=== PATIENT | female | born 1950 | race African-American/Black ===

== ENCOUNTER 2017-06-23 14:38 | Observation (INO) | payer MEDICARE ==
[2017-06-23] MEDS ORDERED: Meclizine HCl 25 MG TAB ONE (15:43)
[2017-06-23 16:23] LABS: Eosinophils 1 % (0-10); Hemoglobin 14.1 g/dL (12.0-16.0); Lymphocytes 40 % (21-51); MDiff Complete? YES; Mean Corpuscular HGB CONC 33.9 g/dL (32.0-36.0); Mean Corpuscular Volume 88.5 fl (81.0-99.0); Mean Platelet Volume 7.2 fL (7.4-10.4); Monocytes 5 % (0-10); Neutrophil 46 % (42-75); PLT Morphology Comment Appears Adequate; Platelet Count 294 thou/uL (130-400); RBC Distribution Width 12.5 % (11.5-14.5); Reactive Lymphocytes 6 % (0-10); White Blood Cell (WBC) Count 6.6 thou/uL (4.8-10.8)
[2017-06-23 16:32] LABS: ALT (SGPT) 19 U/L (8-55); AST (SGOT) 26 U/L (5-34); Albumin 4.4 g/dL (3.4-4.8); Alkaline Phosphatase 151 U/L (40-150); Anion Gap 20 mmol/L (10-20); BUN (Urea Nitrogen) 16 mg/dL (9.8-20.1); Bilirubin, Total 0.4 mg/dL (0.2-1.2); Calc. Creatinine Clearance 0 mL/min (70-130); Calcium 10.8 mg/dL (7.8-10.44); Carbon Dioxide 24 mmol/L (23-31); Chloride 100 mmol/L (98-107); Estimated GFR-MDRD 63; Globulin 4.5 g/dL (2.4-3.5); Glucose 109 mg/dL (80-115); Potassium 5.1 mmol/L (3.5-5.1); Protein, Total 8.9 g/dL (6.0-8.3); Sodium 139 mmol/L (136-145)
[2017-06-23 16:34] LABS: CKMB 0.6 ng/mL (0-6.6); Troponin I Less than 0.010 ng/mL (< 0.028)
--- NOTE | 2017-06-23 16:43 | CT ---
CT BRAIN WITHOUT CONTRAST: History: Dizziness, vomiting, generalized weakness, headache and ear pain. FINDINGS: No acute infarct, hemorrhage, or hydrocephalus is present. The septum pellucidum and third ventricle are midline. There is a calcified extraaxial mass overlying the right frontal lobe measuring 7 mm on Image 17, Series 2, suspicious for a small meningioma. This does not inducing any significant underly ing mass effect. The mastoid air cells are clear. Visualized sinuses are clear. IMPRESSION: 1. No acute intracranial abnormality. 2. Small extraaxial calcified mass overlying the right frontal lobe anteriorly, most consistent with a small meningioma. This is not inducing any significant underlying mass effect. POS: URBANO
[2017-06-23] MEDS ORDERED: Diazepam 5 MG TAB ONE (17:19)
[2017-06-23] MEDS ORDERED: Ondansetron ODT 4 MG TAB ONE (20:26)
[2017-06-23] MEDS ORDERED: Ketorolac Tromethamine 30 MG/ML VIAL ONE (20:26)
[2017-06-24 09:06] LABS: #Basophils 0.1 thou/uL (0.0-0.2); #Eosinphils 0.1 thou/uL (0.0-0.7); #Lymphocytes 3.2 thou/uL (1.20-3.40); #Monocytes 0.7 thou/uL (0.11-0.59); #Neutrophils 2.8 thou/uL (1.40-6.50); %Eosinophils 0.9 % (0.0-10.0); %Lymphocytes 46.4 % (21.0-51.0); %Monocytes 10.1 % (0.0-10.0); %Neutrophils 40.6 % (42.0-75.0); Hemoglobin 13.5 g/dL (12.0-16.0); Mean Corpuscular HGB CONC 31.9 g/dL (32.0-36.0); Mean Corpuscular Hemoglobin 28.5 pg (27.0-31.0); Mean Corpuscular Volume 89.2 fl (81.0-99.0); Platelet Count 279 thou/uL (130-400); RBC Distribution Width 12.6 % (11.5-14.5); Red Blood Cell (RBC) Count 4.75 mill/uL (4.20-5.40); White Blood Cell (WBC) Count 6.8 thou/uL (4.8-10.8)
[2017-06-24 09:16] LABS: ALT (SGPT) 15 U/L (8-55); AST (SGOT) 19 U/L (5-34); Alkaline Phosphatase 134 U/L (40-150); Anion Gap 16 mmol/L (10-20); BUN (Urea Nitrogen) 20 mg/dL (9.8-20.1); Bilirubin, Total 0.5 mg/dL (0.2-1.2); Calc. Creatinine Clearance 0 mL/min (70-130); Calcium 10.2 mg/dL (7.8-10.44); Carbon Dioxide 26 mmol/L (23-31); Chloride 100 mmol/L (98-107); Estimated GFR-MDRD 63; Globulin 3.6 g/dL (2.4-3.5); Glucose 77 mg/dL (80-115); Magnesium 1.8 mg/dL (1.6-2.6); Phosphorus 3.9 mg/dL (2.3-4.7); Potassium 4.3 mmol/L (3.5-5.1); Protein, Total 7.6 g/dL (6.0-8.3); Sodium 138 mmol/L (136-145)
[2017-06-24 09:18] LABS: CKMB 0.6 ng/mL (0-6.6); Troponin I Less than 0.010 ng/mL (< 0.028)
[2017-06-24 12:12] LABS: Folate (Folic Acid) 9.6 ng/mL (7.0-31.4)
[2017-06-24] MEDS ORDERED: Aspirin 81 mg Enteric Coated Tablet PO SCH (16:15)
[2017-06-24] MEDS ORDERED: Ondansetron HCl/PF 4 MG/2 ML Vial IVP PRN (16:32)
[2017-06-24] MEDS ORDERED: Bisacodyl 5 MG TAB PO PRN (16:32)
[2017-06-24] MEDS ORDERED: Ondansetron ODT 4 MG TAB PO PRN (16:32)
[2017-06-24 16:45] VITALS: BMI 37.6
[2017-06-24] MEDS ORDERED: Diazepam 5 MG TAB PO PRN (17:07)
[2017-06-24] MEDS ORDERED: diphenhydrAMINE 25 MG CAP PO SCH (17:15)
[2017-06-24] MEDS ORDERED: Metoclopramide HCl 10 MG TAB PO SCH (17:15)
[2017-06-24] MEDS ORDERED: Famotidine 20 MG TAB PO SCH (21:00)
[2017-06-24] MEDS: Docusate 100 MG CAP PO SCH (22:14)
[2017-06-25] MEDS ORDERED: Acetaminophen 500 MG TAB PO PRN (03:21)
[2017-06-25 05:46] LABS: #Eosinphils 0.1 thou/uL (0.0-0.7); #Lymphocytes 3.2 thou/uL (1.20-3.40); #Monocytes 0.6 thou/uL (0.11-0.59); #Neutrophils 2.6 thou/uL (1.40-6.50); %Basophils 0.7 % (0.0-1.0); %Eosinophils 1.2 % (0.0-10.0); %Lymphocytes 48.6 % (21.0-51.0); %Monocytes 9.7 % (0.0-10.0); %Neutrophils 39.8 % (42.0-75.0); Hemoglobin 13.4 g/dL (12.0-16.0); Mean Corpuscular HGB CONC 32.8 g/dL (32.0-36.0); Mean Corpuscular Hemoglobin 30.2 pg (27.0-31.0); Mean Platelet Volume 7.5 fL (7.4-10.4); Platelet Count 254 thou/uL (130-400); RBC Distribution Width 12.5 % (11.5-14.5); Red Blood Cell (RBC) Count 4.42 mill/uL (4.20-5.40); White Blood Cell (WBC) Count 6.5 thou/uL (4.8-10.8)
[2017-06-25 06:00] LABS: Anion Gap 12 mmol/L (10-20); BUN (Urea Nitrogen) 22 mg/dL (9.8-20.1); Calc. Creatinine Clearance 75 mL/min (70-130); Calcium 9.6 mg/dL (7.8-10.44); Carbon Dioxide 28 mmol/L (23-31); Chloride 102 mmol/L (98-107); Estimated GFR-MDRD 69; Glucose 93 mg/dL (80-115); Potassium 4.1 mmol/L (3.5-5.1); Sodium 138 mmol/L (136-145)
[2017-06-25] MEDS: Docusate 100 MG CAP PO SCH (08:03)
--- NOTE | 2017-06-25 08:36 | HP ---
PRIMARY CARE PHYSICIAN: Ava borrego. CHIEF COMPLAINT: Vertigo and headache. HISTORY OF PRESENT ILLNESS: This is a 67-year-old -[place] female who reports an upper respi ratory tract infection with congestion and swelling in the right side of her face about a week ago. This resolved and 2 days ago, patient woke up with severe vertigo, worse with looking up or moving ar ound her head. She reports that this was accompanied by a headache, occipital and then moving up int o the top of her head as well that has been constant. The vertigo came and went in intensity, but wa s always present, associated with multiple episodes of nausea and vomiting so much, so that she start ed having severe abdominal pain from the soreness from vomiting continuously. The patient eventually went to the emergency room yesterday afternoon and she had a CT scan, which showed a small calcified meningioma, but otherwise no abnormalities and she was treated in the emergency room overnight on ob servation status. They gave her meclizine, Toradol IM and some oral Valium. They were unable to sta rt IV all night. The patient had persistence of symptoms this morning and so [facility] and further workup. PAST MEDICAL HISTORY: 1. Gastroesophageal reflux disease. 2. Sleep apnea. 3. Hypertension. 4. Asthma. PAST SURGICAL HISTORY: 1. Cooper cyst off of left knee. 2. Lumpectomy of right breast with complications and some nerve damage in her right hand. 3. Partial hysterectomy. 4. Tubal ligation. 5. Cyst removal off of the left hand. 6. EGD for her GERD with resulting respiratory failure, requiring intubation. PSYCHIATRIC HISTORY: None. SOCIAL HISTORY: No history of tobacco use, no alcohol or illicit drug use. ALLERGIES: 1. CODEINE. 2. DARVOCET. 3. HYDROCODONE. 4. MORPHINE. 5. PENICILLIN. CURRENT MEDICATIONS: 1. Protonix 40 mg twice a day. 2. Amlodipine/valsartan 5/325 mg once a day. 3. Crestor 40 mg daily. 4. Famotidine 20 mg twice a day. 5. Cetirizine 10 mg daily. 6. Spironolactone/hydrochlorothiazide 25/25 mg 1 tablet daily. 7. Montelukast 10 mg daily. 8. Tramadol 50 mg every 12 hours as needed. 9. Azelastine ophthalmic 1 drop in both eyes 2 times a day. 10. Albuterol inhaler as needed. 11. Atrovent inhaler as needed. 12. Bevespi inhaler. 13. Incruse Ellipta. 14. Symbicort. FAMILY HISTORY: No family history of stroke or other neurologic conditions. REVIEW OF SYSTEMS: Constitutional: No fever. She has had chills and weakness. Eyes: No double vi abby or blurred vision. ENT: Bilateral ears with lots of pressure, but no hearing loss and no sharp pain, no sore throat. No current nasal congestion. Pulmonary: No coughing, wheezing or shortness of breath. Cardiac: No chest pain, no palpitations or racing heart. Gastrointestinal: She has abdominal soreness, but no active pain without movement or pressure curren tly. She had nausea and vomiting previously as per HPI. No diarrhea or constipation. Genitourinary : No dysuria or hematuria. Musculoskeletal: No muscle aches or joint pains. Neurologic: Headache and dizziness with vertigo as per HPI. No numbness, tingling or focal weakness except for some righ t hand numbness that is chronic. Skin: No rashes or other lesions that she has noticed. PHYSICAL EXAMINATION: VITAL SIGNS: Blood pressure 133/95, pulse 74, respirations 20, O2 saturation 97% on room air and tem perature 98.1. GENERAL: This is a well-developed, obese -[place] female in no apparent distress if she sits completely still. HEENT: Pupils are equal, round, and reactive to light. Oropharynx is clear without lesions, erythem a or exudate. She does have moist mucous membranes. NECK: Supple. No lymphadenopathy, no thyroid nodules or enlargement, no JVD. HEART: Regular rate and rhythm. No murmurs, rubs or gallops. LUNGS: Clear to auscultation bilaterally. No wheezes, crackles or rhonchi. ABDOMEN: Soft, nontender to palpation, normoactive bowel sounds. No hepatosplenomegaly or other mas ses. EXTREMITIES: No clubbing, cyanosis or edema. SKIN: No rashes or other lesions noted. NEUROLOGIC: Cranial nerves intact and equal bilaterally with mild horizontal nystagmus. No rotary n ystagmus. She has a negative HINTS exam. Deep tendon reflexes 2+ in all extremities. Strength 5/5 in all extremities. Sensation intact. LABORATORY DATA: CBC within normal limits. Complete metabolic panel within normal limits. CT of th e brain showing a small extraaxial calcified mass overlying the right frontal lobe anteriorly consist ent with small meningioma without any significant underlying mass effect, no evidence for stroke. Rh ythm strip: I did review the rhythm strip done for telemetry on arrival, it showed normal sinus rhyt hm without any significant arrhythmias. ASSESSMENT AND PLAN: 1. Acute vertigo with nausea and vomiting. The patient does have a severe headache with this concer n for possibility of a stroke. We will get an MRI. The patient does have claustrophobia so she will neet to be pretreated; we will try 10 mg of Valium. Other likely etiologies would be a viral labyri nthitis given her recent URI, benign positional vertigo was another possibility. We will go ahead an d consult Dr. Riggs. I have spoken to him on the phone. He said he will see the patient tomorrow. 2. Headache. It seems to be related to her vertigo. She does not have a history of migraines given the lack of response to Toradol. In the emergency room, we will try a dose of Reglan with Benadryl . She did not have any IV access. We will give it orally and see if this helps her headache. 3. Hypertension. We will resume patient's home medications. 4. Gastroesophageal reflux disease. We will resume patient's Protonix. 5. Deep venous thrombosis prophylaxis, put the patient on sequential compression devices while she i s in bed and give her a low dose Lovenox. 6. CODE STATUS. I did discuss this with the patient. She is FULL CODE. Should she be incapacitate d, her sons would be her medical decision maker. Her oldest son is present in the room, his name is Tony Blevins.
[2017-06-25] MEDS ORDERED: Enoxaparin Sodium 40 MG/0.4 ML SYRINGE SC SCH (09:00)
--- NOTE | 2017-06-25 09:23 | PDOC.PN ---
- Subjective Encounter Start Date: 06/25/17 Encounter Start Time: 10:50 Subjective: Patient's NICE improved a bit with Reglan yest, but then came right -: back. Dizziness a bit better, still with sig episode this AM. -: Ambulating to bathroom well. No more N/V. - Objective Resuscitation Status: Resuscitation Status FULL:Full Resuscitation MAR Reviewed: Yes Vital Signs & Weight: Vital Signs (12 hours) Temp Pulse Pulse Pulse Resp BP BP 06/25/17 07:17 85 84 127/90 127/82 06/25/17 04:10 98.0 F 68 16 06/24/17 23:25 97.5 F L 71 18 BP Pulse Ox Pulse Ox 06/25/17 07:17 97 06/25/17 04:10 113/59 L 96 06/24/17 23:25 119/58 L 96 Weight Weight 186 lb 6.4 oz Result Diagrams: 06/25/17 04:16 06/25/17 04:16 Phys Exam - Physical Examination Constitutional: NAD HEENT: moist MMs Respiratory: no wheezing, no rales, no rhonchi, clear to auscultation bilateral Cardiovascular: RRR, no significant murmur Gastrointestinal: soft, positive bowel sounds Neurological: non-focal, moves all 4 limbs Psychiatric: normal affect, A&O x 3 Dx/Plan (1) Vertigo Code(s): R42 - DIZZINESS AND GIDDINESS Status: Acute (2) Headache Code(s): R51 - HEADACHE Status: Acute Comment: Attempt Reglan and Benadryl q30min x3 doses to break NICE. (3) GERD (gastroesophageal reflux disease) Code(s): K21.9 - GASTRO-ESOPHAGEAL REFLUX DISEASE WITHOUT ESOPHAGITIS Status: Chronic (4) HTN (hypertension) Code(s): I10 - ESSENTIAL (PRIMARY) HYPERTENSION Status: Chronic Qualifiers: Hypertension type: essential hypertension Qualified Code(s): I10 - Essential (primary) hypertension Comment: well controlled (5) Sleep apnea Code(s): G47.30 - SLEEP APNEA, UNSPECIFIED Status: Chronic (6) Asthma Code(s): J45.909 - UNSPECIFIED ASTHMA, UNCOMPLICATED Status: Chronic - Plan cont current plan of care MRI done, read pending -: Dr. Boyce to see today * . - Discharge Day Encounter end time: 11:00
[2017-06-25] MEDS ORDERED: traMADol HCl 50 MG TAB PO PRN (09:24)
[2017-06-25] MEDS ORDERED: Loratadine 10 MG TAB PO SCH (10:00)
[2017-06-25] MEDS ORDERED: Meclizine HCl 25 MG TAB PO PRN (10:52)
[2017-06-25] MEDS ORDERED: diphenhydrAMINE 25 MG CAP PO SCH (11:00)
[2017-06-25] MEDS: Metoclopramide 10 MG/10 ML UDCUP PO PRN ×3 (12:05→14:22)
[2017-06-25] MEDS ORDERED: PROVENTIL INHALER 6.7 G (200 INHALATIONS) INH SCH (13:00)
[2017-06-25] MEDS ORDERED: Ipratropium Bromide 2.5 ml Neb NEB SCH (13:00)
[2017-06-25] MEDS ORDERED: Ipratropium Oral Inhaler (200 INHALATIONS) INH SCH (13:00)
[2017-06-25] MEDS: Ipratropium Oral Inhaler (200 INHALATIONS) INH SCH ×2 (14:43→18:56)
[2017-06-25] MEDS: PROVENTIL INHALER 6.7 G (200 INHALATIONS) INH SCH ×2 (14:44→18:55)
[2017-06-25 15:46] VITALS: BP 116/56; TEMP 98.6
[2017-06-25] MEDS ORDERED: Ketorolac Tromethamine 30 MG/ML VIAL IVP SCH (18:15)
[2017-06-25] MEDS ORDERED: Mometasone/Formoterol 120 PUFF INHALER INH SCH (18:30)
[2017-06-25] MEDS ORDERED: Ketorolac Tromethamine 30 MG/ML VIAL IM SCH (19:00)
--- NOTE | 2017-06-25 19:04 | MRI ---
MRI BRAIN WITHOUT CONTRAST: 06/25/17 Multiplanar and multisequential imaging of the brain obtained. HISTORY: Vertigo. Assess for stroke. FINDINGS: Comparison made to CT of 06/23/17. FINDINGS: Ventricles have normal size and position. There is no evidence of restricted diffusion. No evidence o f mass or edema. No significant white matter abnormality. No evidence of hemorrhage or infarct. intra cranial internal carotid arteries, proximal cerebral arteries and basilar arteries show flow voids. P aranasal sinuses and mastoids appear clear. The small densely calcified meningioma along the dural surface anteriorly over the right frontal lobe is seen on CT is again identified. There is also evidence of a second densely calcified meningioma arising from the lateral right fronta l lobe along the base of the anterior cranial fossa on the right measuring approximately 8 mm. This i s also apparent on the prior CT. IMPRESSION: No evidence of acute process. POS: AGW
[2017-06-25] MEDS ORDERED: Famotidine 20 MG TAB PO SCH (21:00)
[2017-06-25] MEDS ORDERED: Montelukast Sodium 10 mg Tablet PO SCH (21:00)
[2017-06-25] MEDS ORDERED: Ketotifen Fumarate 0.025% Ophth Soln 5 ml Bottle EA EYE SCH (21:00)
--- NOTE | 2017-06-25 23:36 | CON ---
DATE OF CONSULTATION: 06/25/2017 CONSULTING PHYSICIAN: [facility]. IMPRESSION: Probable peripheral vertigo. PLAN: 1. Obtain MRI of the brain to rule out an ischemic event. 2. The patient discharged home if her MRI is negative. HISTORY OF PRESENT ILLNESS: Ms. Blevins is a 67-year-old female with a past history of hypertension , hyperlipidemia. She presented with acute onset of vertigo with nausea and vomiting 4 days ago. He r symptoms persisted on Saturday, she decided to come to the hospital. She had a CT scan of the brain done which was unremarkable. The intensity of vertigo has diminished. She has been able to move abo ut, and tolerate the movement better today compared to yesterday. There was some associated headache at the onset. She has had some new onset of tinnitus as well. She reports that she had sinus conge stion and drainage prior to the onset of these symptoms. She denies any focal neurologic symptoms as sociated with it otherwise. PAST MEDICAL HISTORY: As listed above. ALLERGIES: PENICILLIN, MORPHINE, CODEINE, TYLENOL. SOCIAL HISTORY: No tobacco or alcohol use. FAMILY HISTORY: Noncontributory. REVIEW OF SYSTEMS: No complaints of confusion, double vision, trouble swallowing, abnormal movements , or incontinence. PHYSICAL EXAMINATION: GENERAL: She is an overweight middle-aged woman in no distress. HEENT: Pupils are equal and reactive. Conjunctivae clear. No nystagmus is present. Oropharynx is clear. NECK: Supple. EXTREMITIES: No cyanosis. NEUROLOGIC: She was alert and cooperative. Her speech is fluent and clear. Exam was nonfocal. IMAGING: Reviewed. SUMMARY: Overall, her symptoms appear more consistent with a peripheral vertigo, central cause due t o a cerebellar stroke, needs to be excluded.
[2017-06-26] MEDS ORDERED: Spironolactone/Hctz 25 MG/25 MG TABLET PO SCH (09:00)
[2017-06-26] MEDS ORDERED: Amlodipine 5 MG TAB PO SCH (09:00)
[2017-06-26] MEDS ORDERED: Loratadine 10 MG TAB PO SCH (09:00)
[2017-06-26] MEDS ORDERED: Rosuvastatin 20 MG TAB PO SCH (09:00)
[2017-06-26] MEDS ORDERED: Valsartan 80 MG TAB PO SCH (09:00)
--- NOTE | 2017-06-26 12:33 | DIS ---
PRIMARY CARE PHYSICIAN: Out of town. REASON FOR ADMISSION: Vertigo with nausea, vomiting, and headache. DISCHARGE DIAGNOSES: 1. Acute vertigo, improved. 2. Nausea and vomiting, resolved. 3. Tension headache, resolved. 4. Gastroesophageal reflux disease, controlled. 5. Hypertension, controlled. 6. Sleep apnea. 7. Asthma, controlled. PROCEDURES: 1. CT of the brain showing a small extraaxial calcified mass overlying the right frontal lobe consis tent with small meningioma. 2. MRI of the brain report pending showing no acute process, but again showing actually too calcifie d meningiomas. CONSULTATIONS: Neurology, Dr. Boyce. SUMMARY OF HOSPITAL COURSE: This is a 67-year-old female reported an upper respirat ory tract infection with congestion and swelling the week prior to admission, this improved and then 2 days ago, patient worsening with severe vertigo, worse with looking up or moving her head around, a ccompanied by a headache occipital in the top of head, vertigo came and went in intensity that became progressive and so then started became any associated with nausea and vomiting. She started wretchi ng so much she developed severe abdominal pain as well. Eventually, patient went into the emergency room in [facility], and there she was treated with IM Toradol, some Valium, and meclizine watched overnight without improvement in her symptoms, so she was sent here for further evaluation. We treated her with Reglan and Benadryl for the headache with improvement in her headache calm at the time of discharge and meclizine for the dizziness. She has had improvement with dizziness. No more nausea or vomiting. Initial CT scan showed a meningioma, but no acute process and was recommended t o see Neurosurgery as an outpatient for this. MRI was done, which showed no acute process, no eviden ce of a basilar stroke causing her symptoms. Dr. Boyce was consulted and confirmed that this was n ot a central nervous system problem, but it was more with her inner ears and labyrinth. Patient is d oing better at the time of discharge and will be discharged home. DISCHARGE MANAGEMENT: Discharged to home. FOLLOW UP: Primary care physician in [address] Sun, Neurosurgery in 2-3 weeks. ACTIVITY: As tolerated. DIET: Healthy-heart, low-sodium diet. MEDICATIONS: 1. Meclizine 25 mg every 8 hours as needed for dizziness, 30 tablets dispensed. 2. Zofran 4 mg sublingual every 6 hours as needed for nausea and vomiting, 15 tablets dispensed, and continue all home medications. 3. Zyrtec 10 mg daily. 4. Montelukast 10 mg at night. 5. Protonix 40 mg twice a day. 6. Famotidine twice a day. 7. Tramadol 50 mg twice a day as needed. 8. Spironolactone/hydrochlorothiazide 25/25 mg p.o. daily. 9. Azelastine 1 drop in each eye twice a day. 10. Amlodipine/valsartan 5/320 mg p.o. daily. 11. Ellipta 62.5 mcg inhaled daily. 12. Ventolin inhaler as needed. 13. Atrovent inhaler as needed. 14. Crestor 40 mg daily. 15. Symbicort 80/4.5 one puff twice a day. 16. Bevespi Aerosphere inhaler one inhalation twice a day.
== END 2017-06-25 20:10 | disposition home or self-care (01) ==
LOC: SCSER 14:38 → SCSEROBS 19:00 → INTOOBSV 19:00 → OBSVTOIN 19:00 → SCSER 19:20 → 2SW 06-24 16:04
PROVIDERS: ADMIT Internal Medicine; ATTEND Internal Medicine
DX: R42 Dizziness and giddiness (principal); R11.2 Nausea with vomiting, unspecified; G44.209 Tension-type headache, unspecified, not intractable; K21.9 Gastro-esophageal reflux disease without esophagitis; I10 Essential (primary) hypertension; G47.30 Sleep apnea, unspecified; J45.909 Unspecified asthma, uncomplicated; Z88.0 Allergy status to penicillin; Z88.5 Allergy status to narcotic agent; Z88.8 Allergy status to other drugs, medicaments and biological substances; Z79.899 Other long term (current) drug therapy
CPT/HCPCS: 70450; 70551; 80048; 80053 ×2; 82553 ×2; 82607; 82746; 83735; 84100; 84484 ×2; 85025 ×3; 94640; 96372 ×2; 97139 ×4; 99285; G0378 ×2; G8987; G8988; G8989; 36415; J1885; Q0162